=== PATIENT | female | born 1990 | race Two or more races ===

== ENCOUNTER 2021-07-25 09:47 | Inpatient (IN) | payer OTHER ==
[~2021-07-25] VITALS: Ht 167.6 cm; Wt 81.2 kg
[~2021-07-25 09:47] MED LIST: ECOTRIN PO; PRENATAL1 TAB
[2021-07-25] MEDS ORDERED: ECOTRIN81 MG (16:19)
== END 2021-07-28 17:36 | disposition home or self-care (01) | DRG 785 ==
LOC: LDR 09:47 → O/R 11:27 → OB/GYN 11:27 → LDR 22:00 → OB/GYN 07-26 00:55
PROVIDERS: ADMIT Obstetrics & Gynecology; ATTEND Obstetrics & Gynecology
PROC: 0UB70ZZ Excision of Bilateral Fallopian Tubes, Open Approach (ICD-10-PCS; 2021-07-25)
PROC: 4A1HXFZ Monitoring of Products of Conception, Cardiac Rhythm, External Approach (ICD-10-PCS; 2021-07-25)
PROC: 10D00Z1 Extraction of Products of Conception, Low, Open Approach (ICD-10-PCS; principal; 2021-07-25 22:00)
DX: O34.211 Maternal care for low transverse scar from previous cesarean delivery (principal); Z30.2 Encounter for sterilization; Z37.0 Single live birth; Z3A.39 39 weeks gestation of pregnancy

== ENCOUNTER 2021-08-16 21:00 | Emergency (ER) | payer OTHER ==
[~2021-08-16] VITALS: Ht 167.6 cm; Wt 121.6 kg
[~2021-08-16 21:00] MED LIST changes: +ECOTRIN81 MG
[2021-08-16] MEDS ORDERED: NAPROXEN250 MG PO ×2 (23:01→23:03)
[2021-08-16] MEDS ORDERED: ORPHENADRINE C100 MG PO (23:02)
== END 2021-08-17 00:38 | disposition home or self-care (01) ==
LOC: ER 21:00
DX: M94.0 Chondrocostal junction syndrome [Tietze] (principal); M62.838 Other muscle spasm

== ENCOUNTER 2021-11-16 21:19 | Emergency (ER) | payer OTHER ==
[~2021-11-16] VITALS: Ht 162.6 cm; Wt 127.0 kg
[~2021-11-16 21:19] MED LIST changes: +NAPROXEN250 MG PO; +ORPHENADRINE C100 MG PO
[2021-11-16] MEDS ORDERED: DICLOFENAC SODI75 MG PO (22:10)
[2021-11-16] MEDS ORDERED: NORFLEX100MG PO (22:10)
== END 2021-11-16 22:24 | disposition home or self-care (01) ==
LOC: ER 21:19
DX: M54.89 Other dorsalgia (principal); M62.838 Other muscle spasm

== ENCOUNTER 2023-03-02 19:15 | Emergency (ER) | payer OTHER ==
[~2023-03-02] VITALS: Ht 162.6 cm; Wt 133.4 kg
[~2023-03-02 19:15] MED LIST changes: +DICLOFENAC SODI75 MG PO; +NORFLEX100MG PO
== END 2023-03-02 22:00 | disposition home or self-care (01) ==
LOC: ER 19:15
DX: R10.2 Pelvic and perineal pain (principal)